=== PATIENT | male | born 1985 | race Caucasian/White ===

== ENCOUNTER 2024-09-21 07:36 | Outpatient (CLI) | payer BC, SELFPAY | END 2024-09-21 07:37 | disposition home or self-care (01) | LOC: CT 07:37 | PROVIDERS: Visit Provider Otolaryngology | DX: K11.20 Sialoadenitis, unspecified (principal); K11.5 Sialolithiasis; R59.9 Enlarged lymph nodes, unspecified | CPT/HCPCS: 70491; Q9967 ==